=== PATIENT | female | born 1995 | race Two or more races ===

== ENCOUNTER → 2017-09-27 | Emergency (ER) | payer OTHER ==
[~2017-09-27] VITALS: Ht 160 cm; Wt 61.2 kg
== END | disposition home or self-care (01) ==
LOC: ER 21:18
DX: M94.0 Chondrocostal junction syndrome [Tietze] (principal)

== ENCOUNTER 2018-05-05 23:29 | Emergency (ER) | payer OTHER ==
[~2018-05-05] VITALS: Ht 157.5 cm; Wt 61.2 kg
[2018-05-06] MEDS ORDERED: LEVSIN/SL0.125 MG SL (05:26)
== END 2018-05-06 05:50 | disposition home or self-care (01) ==
LOC: ER 23:29
DX: K21.9 Gastro-esophageal reflux disease without esophagitis (principal)

== ENCOUNTER 2019-08-13 22:30 | Emergency (ER) | payer OTHER ==
[~2019-08-13] VITALS: Ht 160 cm; Wt 57.2 kg
[~2019-08-13 22:30] MED LIST: LEVSIN/SL0.125 MG SL
== END 2019-08-14 04:28 | disposition home or self-care (01) ==
LOC: ER 22:30
DX: N83.291 Other ovarian cyst, right side (principal); R10.2 Pelvic and perineal pain

== ENCOUNTER 2021-04-11 22:06 | Emergency (ER) | payer OTHER ==
[~2021-04-11] VITALS: Ht 160 cm; Wt 65.8 kg
== END 2021-04-12 00:43 | disposition home or self-care (01) ==
LOC: ER
DX: B34.9 Viral infection, unspecified (principal); R53.81 Other malaise; Z03.818 Encounter for observation for suspected exposure to other biological agents ruled out

== ENCOUNTER 2021-09-01 05:01 | Emergency (ER) | payer OTHER ==
[~2021-09-01] VITALS: Ht 160 cm; Wt 63.5 kg
== END 2021-09-01 10:55 | disposition home or self-care (01) ==
LOC: ER 05:01
DX: R10.84 Generalized abdominal pain (principal); R19.7 Diarrhea, unspecified

== ENCOUNTER 2021-09-01 09:00 | Outpatient (CLI) | payer OTHER | END 2021-09-01 09:15 | disposition home or self-care (01) | LOC: PPH VACUNA 09:00 | PROVIDERS: ATTEND Emergency Medicine Pediatric Emergency Medicine | DX: Z23 Encounter for immunization (principal) ==